=== PATIENT | male | born 1935 | race African-American/Black ===

== ENCOUNTER 2018-04-25 11:24 | Inpatient (IN) | payer MEDICARE, MEDICAID ==
[~2018-04-25] VITALS: Ht 172.7 cm; Wt 64.9 kg
[2018-04-25] MEDS ORDERED: SODIUM CHLORIDE 0.9% 1,000 ML IV ONE (11:46)
[2018-04-25 12:15] LABS: BG BASE EXCESS 0.5 mmol/L (-2.0-2.0); BG CARBOXYHEMOGLOBIN 0.2 % (0.5-1.5); BG HCO3 ACT 23.6 mmol/L (22.0-26.0); BG METHEMOGLOBIN 0.1 % (0.0-1.5); BG OXYHEMOGLOBIN 96.7 % (94.0-97.0); BG PCO2 31.7 mmHg (35.0-45.0); BG PH 7.489 (7.350-7.450); BG SAMPLE SITE RIGHT RADIAL; BG TOTAL HEMOGLOBIN 9.3 g/dL (12.0-18.0); BG VENT MODE ROOM AIR
[2018-04-25 12:24] LABS: BASOPHILS % 0.2 % (0.0-2.0); EOSINOPHILS % 0.5 % (0.0-5.0); HEMATOCRIT. 28.1 % (42.0-52.0); HEMOGLOBIN. 9.3 g/dL (14.0-18.0); LYMPHOCYTES % 10.1 % (20.0-50.0); MEAN CORPUSCULAR HEMOGLOBIN 29.9 pg (28.0-32.0); MEAN CORPUSCULAR VOLUME 90.2 fL (80.0-94.0); MEAN PLATELET VOLUME 11.1 fl (7.4-10.4); NEUTROPHILS % 82.2 % (40.0-76.0); PLATELET 131 x1000/uL (130-400); RED BLOOD CELL COUNT 3.12 mill/uL (4.7-6.1); RED CELL DISTRIBUTION WIDTH 14.1 % (11.6-14.6)
[2018-04-25 12:25] LABS: CHLORIDE 116 mEq/L (98-107)
[2018-04-25 12:34] LABS: ETHANOL BLOOD < 10 mg/dL
[2018-04-25 12:40] LABS: BETA HYDROXYBUTYRATE 0.1 mMol/L (0.0-0.3)
[2018-04-25 12:57] LABS: CLARITY URINE TURBID (CLEAR); COLOR URINE YELLOW (YELLOW); KETONES URINE TRACE (NEGATIVE); LEUKOCYTE ESTERASE URINE 2+ (NEGATIVE); NITRITE URINE NEGATIVE (NEGATIVE); OCCULT BLOOD URINE 3+ (NEGATIVE); PH URINE 5.5 (4.5-8.0); PROTEIN URINE 4+ (NEGATIVE); SPECIFIC GRAVITY URINE 1.022 (1.005-1.030)
[2018-04-25] MEDS ORDERED: CEFTRIAXONE 2 G PREMIX 50 ML IV ONE (13:30)
[2018-04-25 13:39] LABS: *AMPHETAMINES SCREEN URINE NEGATIVE (NEGATIVE)
[2018-04-25 13:40] LABS: *BARBITURATES SCREEN URINE NEGATIVE (NEGATIVE); *BENZODIAZEPINES SCREEN URINE NEGATIVE (NEGATIVE); *COCAINE SCREEN URINE NEGATIVE (NEGATIVE); METHADONE URINE SCREEN NEGATIVE (NEGATIVE); OPIATES URINE SCREEN NEGATIVE (NEGATIVE); PHENCYCLIDINE URINE SCREEN NEGATIVE (NEGATIVE)
[2018-04-25 13:41] LABS: CANNABINOID URINE SCREEN NEGATIVE (NEGATIVE)
[2018-04-25 16:39] VITALS: BP 161/97
[2018-04-25] MEDS ORDERED: CLONIDINE 0.1MG TABLET PO PRN (17:45)
[2018-04-25] MEDS ORDERED: DEXTROSE 50% WATER 50ML SYRINGE IV PRN (17:45)
[2018-04-25] MEDS ORDERED: ACETAMINOPHEN 325MG TABLET PO PRN (17:45)
[2018-04-25] MEDS ORDERED: ONDANSETRON HCL 4MG/2ML INJ IV PRN (17:45)
[2018-04-25 20:23] LABS: AMMONIA 18 uMol/L (<32)
[2018-04-25] MEDS: AMLODIPINE 5MG TABLET PO SCH (21:00)
[2018-04-25] MEDS: SODIUM CHLORIDE 0.45% 1,000 ML IV SCH (21:00)
[2018-04-25] MEDS: INSULIN LISPRO 100 UNITS/ML SUBCUT SCH (21:08)
[2018-04-25] MEDS: BLOOD SUGAR DIAGNOSTIC STRIP TEST SCH (21:08)
[2018-04-26] VITALS (7 sets, daily range): BP systolic 122–173; BP diastolic 79–98
[2018-04-26 06:22] LABS: BASOPHILS % 0.3 % (0.0-2.0); EOSINOPHILS % 2.8 % (0.0-5.0); HEMATOCRIT. 26.3 % (42.0-52.0); HEMOGLOBIN. 8.8 g/dL (14.0-18.0); LYMPHOCYTES % 13.4 % (20.0-50.0); MEAN CORPUSCULAR HEMOGLOBIN 30.1 pg (28.0-32.0); MEAN CORPUSCULAR VOLUME 90.1 fL (80.0-94.0); MEAN PLATELET VOLUME 11.5 fl (7.4-10.4); NEUTROPHILS % 77.5 % (40.0-76.0); PLATELET 109 x1000/uL (130-400); RED BLOOD CELL COUNT 2.92 mill/uL (4.7-6.1); RED CELL DISTRIBUTION WIDTH 14.5 % (11.6-14.6)
[2018-04-26] MEDS: BLOOD SUGAR DIAGNOSTIC STRIP TEST SCH ×4 (06:31→20:32)
[2018-04-26] MEDS: INSULIN LISPRO 100 UNITS/ML SUBCUT SCH ×4 (06:34→21:01)
[2018-04-26] MEDS: SODIUM CHLORIDE 0.45% 1,000 ML IV SCH (08:54)
[2018-04-26] MEDS: AMLODIPINE 5MG TABLET PO SCH (08:54)
[2018-04-26] MEDS ORDERED: CEFTRIAXONE 1 G PREMIX 50 ML IV SCH (14:00)
[2018-04-26] MEDS: ENOXAPARIN 30MG/0.3ML SYR SUBCUT SCH (16:19)
[2018-04-26] MEDS: NIFEDIPINE XL 30MG TAB PO SCH (16:47)
[2018-04-26] MEDS ORDERED: EPOETIN ALFA 10000UNITS/ML VIAL SUBCUT NR (21:00)
[2018-04-27] VITALS (7 sets, daily range): BP systolic 140–176; BP diastolic 76–91
[2018-04-27] MEDS: SODIUM CHLORIDE 0.45% 1,000 ML IV SCH ×2 (04:46→14:53)
[2018-04-27] MEDS: BLOOD SUGAR DIAGNOSTIC STRIP TEST SCH ×4 (06:31→21:22)
[2018-04-27] MEDS: INSULIN LISPRO 100 UNITS/ML SUBCUT SCH ×4 (06:35→21:28)
[2018-04-27 07:43] LABS: BASOPHILS % 0.4 % (0.0-2.0); EOSINOPHILS % 3.5 % (0.0-5.0); HEMATOCRIT. 30.6 % (42.0-52.0); LYMPHOCYTES % 17.1 % (20.0-50.0); MEAN CORPUSCULAR HEMOGLOBIN 29.8 pg (28.0-32.0); MEAN CORPUSCULAR VOLUME 91.1 fL (80.0-94.0); MEAN PLATELET VOLUME 11.9 fl (7.4-10.4); MONOCYTES % 6.4 % (2.0-8.0); NEUTROPHILS % 72.6 % (40.0-76.0); PLATELET 128 x1000/uL (130-400); RED BLOOD CELL COUNT 3.35 mill/uL (4.7-6.1); RED CELL DISTRIBUTION WIDTH 14.7 % (11.6-14.6)
[2018-04-27] MEDS: NIFEDIPINE XL 30MG TAB PO SCH ×2 (08:38→18:02)
[2018-04-27] MEDS: CLOPIDOGREL 75MG TABLET PO SCH (08:38)
[2018-04-27 09:21] LABS: PHOSPHORUS 2.6 mg/dL (2.5-4.9)
[2018-04-27] MEDS ORDERED: LACTULOSE 20G/30ML UDC PO PRN (13:15)
[2018-04-27] MEDS: DOCUSATE SODIUM 250MG CAPSULE PO SCH (14:53)
[2018-04-27] MEDS ORDERED: VANCOMYCIN 1250MG in DEXTROSE 5% WATER 250ML IV NR (15:00)
[2018-04-27] MEDS: ENOXAPARIN 30MG/0.3ML SYR SUBCUT SCH (15:00)
[2018-04-28] VITALS (7 sets, daily range): BP systolic 153–182; BP diastolic 79–93
[2018-04-28] MEDS: SODIUM CHLORIDE 0.45% 1,000 ML IV SCH (06:06)
[2018-04-28] MEDS: INSULIN LISPRO 100 UNITS/ML SUBCUT SCH ×4 (06:21→21:01)
[2018-04-28] MEDS: BLOOD SUGAR DIAGNOSTIC STRIP TEST SCH ×4 (06:21→20:44)
[2018-04-28] MEDS: NIFEDIPINE XL 30MG TAB PO SCH ×2 (08:22→17:10)
[2018-04-28] MEDS: DOCUSATE SODIUM 250MG CAPSULE PO SCH (08:22)
[2018-04-28] MEDS: CLOPIDOGREL 75MG TABLET PO SCH (08:22)
[2018-04-28 08:42] LABS: BASOPHILS % 0.8 % (0.0-2.0); EOSINOPHILS % 3.4 % (0.0-5.0); HEMATOCRIT. 27.6 % (42.0-52.0); HEMOGLOBIN. 9.1 g/dL (14.0-18.0); LYMPHOCYTES % 17.4 % (20.0-50.0); MEAN CORPUSCULAR HEMOGLOBIN 29.8 pg (28.0-32.0); MEAN CORPUSCULAR VOLUME 90.5 fL (80.0-94.0); MEAN PLATELET VOLUME 11.9 fl (7.4-10.4); MONOCYTES % 6.4 % (2.0-8.0); PLATELET 114 x1000/uL (130-400); RED BLOOD CELL COUNT 3.04 mill/uL (4.7-6.1); RED CELL DISTRIBUTION WIDTH 14.6 % (11.6-14.6)
[2018-04-28 10:11] LABS: PHOSPHORUS 2.2 mg/dL (2.5-4.9)
[2018-04-28] MEDS ORDERED: VANCOMYCIN 1 G PREMIX 200 ML IV NR (14:00)
[2018-04-28] MEDS ORDERED: MAGNESIUM 2 G PREMIX 50 ML IV NR (17:00)
[2018-04-28] MEDS: ENOXAPARIN 30MG/0.3ML SYR SUBCUT SCH (17:10)
[2018-04-29] VITALS: BP 176/87
[2018-04-29 04:00] VITALS: BP 173/88
[2018-04-29] MEDS: BLOOD SUGAR DIAGNOSTIC STRIP TEST SCH ×3 (06:30→16:54)
[2018-04-29] MEDS: INSULIN LISPRO 100 UNITS/ML SUBCUT SCH ×3 (06:30→17:01)
[2018-04-29 07:38] LABS: BASOPHILS % 0.9 % (0.0-2.0); EOSINOPHILS % 3.3 % (0.0-5.0); HEMATOCRIT. 25.8 % (42.0-52.0); HEMOGLOBIN. 8.7 g/dL (14.0-18.0); LYMPHOCYTES % 20.4 % (20.0-50.0); MEAN CORPUSCULAR HEMOGLOBIN 30.2 pg (28.0-32.0); MEAN PLATELET VOLUME 11.8 fl (7.4-10.4); MONOCYTES % 7.3 % (2.0-8.0); NEUTROPHILS % 68.1 % (40.0-76.0); PLATELET 128 x1000/uL (130-400); RED BLOOD CELL COUNT 2.87 mill/uL (4.7-6.1); RED CELL DISTRIBUTION WIDTH 14.6 % (11.6-14.6)
[2018-04-29 08:00] VITALS: BP 160/83
[2018-04-29] MEDS: SODIUM CHLORIDE 0.45% 1,000 ML IV SCH (09:37)
[2018-04-29] MEDS: DOCUSATE SODIUM 250MG CAPSULE PO SCH (09:37)
[2018-04-29] MEDS: CLOPIDOGREL 75MG TABLET PO SCH (09:37)
[2018-04-29] MEDS: NIFEDIPINE XL 30MG TAB PO SCH ×2 (09:38→16:54)
[2018-04-29 12:00] VITALS: BP 144/77
[2018-04-29] MEDS: POTASSIUM-SODIUM PHOSPHATE POWDER PACKET PO SCH ×2 (12:16→16:53)
[2018-04-29 16:00] VITALS: BP 152/72
[2018-04-29] MEDS: ENOXAPARIN 30MG/0.3ML SYR SUBCUT SCH (16:49)
[2018-04-29 18:08] VITALS: BP 152/72
[2018-04-30] MEDS ORDERED: VANCOMYCIN 1 G PREMIX 200 ML IV NR (06:00)
== END 2018-04-29 18:40 | DRG 871 ==
LOC: EDBD 11:24 → ER 11:24 → EDBEDREQ 13:31 → EDBEDREQTM 13:41 → EDBEDREQ 13:41 → ENRESERV 14:14 → 8WST 15:19 → EDBEDREQTM 15:31
PROVIDERS: ADMIT Internal Medicine; ATTEND Internal Medicine
DX: A41.9 Sepsis, unspecified organism (principal); E43 Unspecified severe protein-calorie malnutrition; G93.41 Metabolic encephalopathy; I63.9 Cerebral infarction, unspecified; E87.0 Hyperosmolality and hypernatremia; N39.0 Urinary tract infection, site not specified; N17.9 Acute kidney failure, unspecified; E87.3 Alkalosis; N18.4 Chronic kidney disease, stage 4 (severe); I12.9 Hypertensive chronic kidney disease with stage 1 through stage 4 chronic kidney disease, or unspecified chronic kidney disease; D63.8 Anemia in other chronic diseases classified elsewhere; E11.22 Type 2 diabetes mellitus with diabetic chronic kidney disease; N40.0 Benign prostatic hyperplasia without lower urinary tract symptoms; B95.62 Methicillin resistant Staphylococcus aureus infection as the cause of diseases classified elsewhere; F03.90 Unspecified dementia, unspecified severity, without behavioral disturbance, psychotic disturbance, mood disturbance, and anxiety; R62.7 Adult failure to thrive; R47.1 Dysarthria and anarthria; M62.50 Muscle wasting and atrophy, not elsewhere classified, unspecified site; E87.8 Other disorders of electrolyte and fluid balance, not elsewhere classified; D69.6 Thrombocytopenia, unspecified; E83.39 Other disorders of phosphorus metabolism; R13.10 Dysphagia, unspecified; H54.7 Unspecified visual loss; Z83.3 Family history of diabetes mellitus; Z82.49 Family history of ischemic heart disease and other diseases of the circulatory system; Z68.21 Body mass index [BMI] 21.0-21.9, adult; Z74.01 Bed confinement status
CPT/HCPCS: 36415; 36600; 70450; 70551; 71045; 76770; 80048; 80053; 80061; 80202; 80305; 81003; 82010; 82140; 82375; 82805; 82962; 83605; 83735; 83880; 84100; 84443; 85025; 87040; 87077; 87086; 92610; 93005; 93880; 96361; 96365; 96366; 97110; 97163; 97166; 97530; 99285; G0482; J0696; J0885; J1650; J1815; J3370; J3475; J7030; J7060